=== PATIENT | female | born 1935 | race Caucasian/White ===

== ENCOUNTER → 2019-01-16 | Outpatient (CLI) | payer MEDICARE, BC ==
--- NOTE | 2019-01-16 12:54 | BD ---
EXAMINATION TYPE: Axial Bone Density DATE OF EXAM: 01/16/2019 COMPARISON: 2003 CLINICAL HISTORY: hyperparathyroidism Height: 5'4 1/2 Weight: 145 FRAX RISK QUESTIONS: History of Fracture in Adulthood: y Secondary Osteoporosis: RISK FACTORS HISTORY OF: Active: n Postmenopausal woman: y Hyperparathyroidism: y MEDICATIONS: Additional Medications: heart Additional History: EXAM MEASUREMENTS: Bone mineral densitometry was performed using the [email or web address] System. 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 There is increased fracture risk and therapy is usually indicated based on age. Re-Screen 1-2 years. NOTE: T-SCORE=SD OF THE YOUNG ADULT MEAN.
== END | disposition home or self-care (01) ==
LOC: RADBDWWP 12:28
PROVIDERS: ATTEND Surgery
DX: M81.0 Age-related osteoporosis without current pathological fracture (principal); E21.0 Primary hyperparathyroidism
CPT/HCPCS: 77080